=== PATIENT | female | born 1990 | race Caucasian/White ===

== ENCOUNTER 2017-04-23 10:30 | Emergency (ER) | payer OTHER ==
[2017-04-23 10:34] VITALS: BP 120/71; PULSE 86; TEMP 98; BMI 20.1
--- NOTE | 2017-04-23 11:13 | PDOC ---
History of Present Illness - General Chief Complaint: Vaginal Bleeding Stated Complaint: VAGINAL BLEEDING (5 WKS ) Time Seen by Provider: 04/23/17 11:09 History Source: Patient Exam Limitations: Language Barrier (Patient is Canadian speaking, national park ranger phone was used) - History of Present Illness Initial Comments: 04/23/17 12:14 A 26 y/o at 5w3d (by ROBBINJoanie, Sept 1) presents with c/o abd pain and vaginal bleeding. Patient states that she developed abd cramps and vaginal bleeding this morning. She soaked through 1 pad and says there were blood clots. She has not seen a healthcare provider for this current . Her previous was 5 years ago and resulted in a vaginal delivery 1 month early. She delivered in [place]. She denies any complications during her first . She also c/o a headache. Patient denies fever, chills, SOB, and dysuria. Timing/Duration: other (since this morning) Severity: moderate Associated Symptoms: reports: denies symptoms Past History - Past Medical History Allergies/Adverse Reactions: Allergies Allergy/AdvReac Type Severity Reaction Status Date / Time No Known Allergies Allergy Verified 04/23/17 10:32 Home Medications: Ambulatory Orders NK [No Known Home Medication] 04/23/17 Other medical history: none - Reproductive History LMP comment: Mar 16 2017 Is Patient Now?: Yes (#): 2 Para: 1 - Suicide/Smoking/Psychosocial Hx Smoking History: Never smoked Information on smoking cessation initiated: No Hx Alcohol Use: No Drug/Substance Use Hx: No Review of Systems - Review of Systems Is the patient limited Malaysian proficient: Yes Constitutional: No: Fever HEENTM: No: Blurred Vision, Recent change in vision Respiratory: No: Shortness of Breath Cardiac (ROS): No: Chest Pain ABD/GI: Yes: Abdominal cramping : No: Dysuria *Physical Exam - Vital Signs Last Vital Signs Temp Pulse Resp BP Pulse Ox 98.0 F 86 18 120/71 100 04/23/17 10:32 04/23/17 10:32 04/23/17 10:32 04/23/17 10:32 04/23/17 10:32 - Physical Exam General Appearance: Yes: Nourished, Appropriately Dressed Female Pelvic Exam: positive: normal external exam, cervical os closed, vaginal bleeding, other (bimanual exam shows midline tenderness) Gastrointestinal/Abdominal: positive: Tender, Soft ED Treatment Course - LABORATORY CBC & Chemistry Diagram: 04/23/17 13:00 04/23/17 13:00 *DC/Admit/Observation/Transfer Diagnosis at time of Disposition: Complete spontaneous - Discharge Dispostion Disposition: HOME Condition at time of disposition: Improved Admit: No - Referrals Referrals: Chloé Cheung MD [Staff Physician] - - Patient Instructions Printed Discharge Instructions: DI for Miscarriage Additional Instructions: NATHALIE- MARCELLRY THAT YOU HAVE TO GO THROUGH THIS. FOLLOW UP WITH DR. CHEUNG. RETURN TO US IF WORSE OR ANY PROBLEMS. BEST- DR. PAM PULIDO
[2017-04-23 13:22] LABS: BASOPHIL 1.4 % (0-2.0); EOSINOPHIL 7.6 % (0-4.5); MCH 32.5 pg (25.7-33.7); MCHC 33.6 g/dl (32.0-36.0); MEAN CELL VOLUME 96.5 fl (80-96); MEAN PLT VOLUME 10.1 fl (7.5-11.1); PLATELET COUNT 194 K/MM3 (134-434); WHITE BLOOD COUNT 6.7 K/mm3 (4.0-10.0)
[2017-04-23 13:27] LABS: ALBUMIN 4.1 g/dl (3.4-5.0); ANION GAP 7 (8-16); CALCIUM 8.9 mg/dL (8.5-10.1); CO2 27 mmol/L (21-32); GLUCOSE,RANDOM 85 mg/dL (74-106)
[2017-04-23 13:31] LABS: BILIRUBIN,TOTAL 0.5 mg/dL (0.2-1.0); CREATININE 0.5 mg/dL (0.55-1.02); SGOT/AST 22 U/L (15-37); SGPT/ALT 37 U/L (12-78); TOT PROT 7.7 g/dl (6.4-8.2)
[2017-04-23 13:33] LABS: INR 1.04 (0.82-1.09); PROTHROMBIN TIME (PATIENT) 11.4 SEC (9.98-11.88)
[2017-04-23 13:34] LABS: ALK PHOS 117 U/L (45-117)
== END 2017-04-23 15:54 | disposition home or self-care (01) ==
LOC: JER 10:30
DX: O26.891 Other specified pregnancy related conditions, first trimester (principal); O03.9 Complete or unspecified spontaneous abortion without complication
CPT/HCPCS: 36415; 76817-TC; 80053; 84702; 85025; 85610; 86850; 86900; 86901; 99283-25

== ENCOUNTER 2017-12-04 16:00 | Emergency (ER) | payer OTHER ==
--- NOTE | 2017-12-04 16:04 | PDOC ---
Rapid Medical Evaluation Time Seen by Provider: 12/04/17 16:02 Medical Evaluation: Allergies Allergy/AdvReac Type Severity Reaction Status Date / Time No Known Allergies Allergy Verified 04/23/17 10:32 12/04/17 16:02 Bit by mouse to R third finger yesterday. Pt. 6 months . No abdominal pain, vaginal bleeding. Exam: Ambulatory, no respiratory distress. Bite kosta to R third base of finger. Full ROM Orders: Nothing Pt. to proceed to ED for further evaluation.
[2017-12-04 16:06] VITALS: BMI 22.8
--- NOTE | 2017-12-04 17:19 | PDOC ---
History of Present Illness - General Chief Complaint: Bite Stated Complaint: MOUSE BITE Time Seen by Provider: 12/04/17 16:02 History Source: Patient Exam Limitations: No Limitations - History of Present Illness Initial Comments: 12/04/17 17:13 Best Contact: PCP:Dr. Alva Jackson Pmhx:N/A Pshx:N/A Allergies:NKDA FH:N/A Social Hx: Cigarettes/ 0 Alcohol/ 0 Drugs/0 27-year-old female presents to the emergency department complaining of a superficial abrasion to the dorsal aspect of her proximal right third digit after being bit by a mouse that was in her home. Patient states the incident occurred approximately 8 hours ago. She denies fever, chills, nausea/vomiting, extremity numbness or tingling sensation. Patient denies any pain or discomfort. Immunizations are up-to-date. Tetanus is within 5 years. Past History - Past Medical History Allergies/Adverse Reactions: Allergies Allergy/AdvReac Type Severity Reaction Status Date / Time No Known Allergies Allergy Verified 04/23/17 10:32 Home Medications: Ambulatory Orders Amoxicillin/Potassium Clav [Augmentin 875-125 Tablet] 1 each PO BID #10 tablet 12/04/17 COPD: No - Reproductive History (#): 2 Para: 1 - Suicide/Smoking/Psychosocial Hx Smoking History: Never smoked Have you smoked in the past 12 months: No Information on smoking cessation initiated: No Hx Alcohol Use: No Drug/Substance Use Hx: No Substance Use Type: None Review of Systems - Review of Systems Able to Perform ROS?: Yes Comments:: 12/04/17 17:16 CONSTITUTIONAL: Absent: fever, chills, diaphoresis, generalized weakness, malaise, loss of appetite MUSCULOSKELETAL: Absent: myalgia, arthralgia, joint swelling SKIN: Absent: rash, itching, pallor Right 3rd prox dorsum phalanx +abrasion neg pain on palp Is the patient limited Vincentian proficient: No *Physical Exam - Vital Signs Last Vital Signs Temp Pulse Resp BP Pulse Ox 98.0 F 77 18 106/65 100 12/04/17 16:04 12/04/17 16:04 12/04/17 16:04 12/04/17 16:04 12/04/17 16:04 - Physical Exam Comments: 12/04/17 17:16 GENERAL: Well developed, well nourished. Awake and alert. No acute distress. HEENT: Normocephalic, atraumatic. PERRLA, EOMI. No conjunctival pallor. Sclera are non- icteric. Moist mucous membranes. Oropharynx is clear. NECK: Supple. Full ROM. No JVD. Carotid pulses 2+ and symmetric, without bruits. No thyromegaly. No lymphadenopathy. CARDIOVASCULAR: Regular rate and rhythm. No murmurs, rubs, or gallops. Distal pulses are 2+ and symmetric. PULMONARY: No evidence of respiratory distress. Lungs clear to auscultation bilaterally. No wheezing, rales or rhonchi. ABDOMINAL: Soft. Non-tender. Non-distended. No rebound or guarding. No organomegaly. Normoactive bowel sounds. MUSCULOSKELETAL Normal range of motion at all joints. No bony deformities or tenderness. No CVA tenderness. EXTREMITIES: No cyanosis. No clubbing. No edema. No calf tenderness. SKIN: Warm and dry. Normal capillary refill. No rashes. No jaundice. =DORSAL PROX PHALANX TO 3RD RIGHT DIGIT SUPERFICIAL ABRASION f.r.o.m. Neg swelling Moderate Sedation - Procedure Monitoring Vital Signs: Vital Signs Temp Pulse Resp BP Pulse Ox 98.0 F 77 18 106/65 100 12/04/17 16:04 12/04/17 16:04 12/04/17 16:04 12/04/17 16:04 12/04/17 16:04 Progress Note - Progress Note Progress Note: This is a 27-year-old female patient who presents to the ER complaining of a superficial abrasion to the dorsal aspect of her third proximal phalanx after a mouth bit her finger at home. Under the CDC website, rabies are not transmitted through mouth bite. Patient will be placed on prophylactic Augmentin which is safe for her . Upon d/c, pt was sent to L&D for monitoring *DC/Admit/Observation/Transfer Diagnosis at time of Disposition: Bitten by mouse, initial encounter - Discharge Dispostion Condition at time of disposition: Stable Decision to Admit order: No - Prescriptions Prescriptions: Amoxicillin/Potassium Clav [Augmentin 875-125 Tablet] 1 each PO BID #10 tablet - Referrals Referrals: Bre Mendez MD [Staff Physician] - Светлана Murray MD [Staff Physician] - (Maintain appontment as scheduled. Drink plenty of fluids (8-10 glasses per day). Take all medication as prescribed by you doctor. Return to Labor and Delivery if you have any bledding, your water breaks, having contractions 5 min apart for one hour, or if you do not feel the baby moving. Patient verbalizes understanding. Ok to d/ c home. Stable and undelivered) - Patient Instructions Printed Discharge Instructions: DI for Animal Bites Additional Instructions: Wash your finger with soap and water Augmentin 875 mg as prescribed Follow up with the Infectious Disease physician listed on your discharge this week Return to the ER for signs of infection: redness/red streaks, drainage, swelling , fever - Post Discharge Activity
[2017-12-04] MEDS ORDERED: DIPHTH,PERTUSS(ACELL),TET 0.5 ML DISP.SYRIN IM ONE ×2 (18:00→19:15)
[2017-12-04 18:42] VITALS: PULSE 76; TEMP 983
[2017-12-04 18:49] VITALS: BP 103/60
== END 2017-12-04 18:30 | disposition home or self-care (01) ==
LOC: JERFT 16:00
PROC: 3E0234Z Introduction of Serum, Toxoid and Vaccine into Muscle, Percutaneous Approach (ICD-10-PCS; principal; 2017-12-04)
DX: O99.89 Other specified diseases and conditions complicating pregnancy, childbirth and the puerperium (principal); S60.472A Other superficial bite of right middle finger, initial encounter; W53.01XA Bitten by mouse, initial encounter; Y93.89 Activity, other specified; Y92.038 Other place in apartment as the place of occurrence of the external cause; Z3A.24 24 weeks gestation of pregnancy
CPT/HCPCS: 90471; 99281-25

== ENCOUNTER 2018-03-08 22:35 | Emergency (ER) | payer OTHER ==
--- NOTE | 2018-03-08 22:55 | PDOC ---
Attending Attestation - HPI HPI: 03/08/18 23:37 The patient is a 27 year old female, with no significant past medical history, who presents to the emergency department with, fever, diaphoresis, and right flank pain. As per patient, she is 2 days , discharged today. The gave at full-term, vaginal delivery. She is currently . She denies recent headache or dizziness. She denies recent nausea, vomit, diarrhea or constipation. She denies recent dysuria, frequency, urgency or hematuria. She denies recent chest pain or shortness of breath. Allergies: NKA Social history: Nonsmoker. Denies EtOH use and recreational drug use. TIN POURER: Dr. Bailey - Physicial Exam PE: 03/08/18 23:37 +GENERAL: Febrile 102.3 degrees F. Warm to the touch and diaphoretic. Awake, alert, and fully oriented, in no acute distress HEAD: No signs of trauma NECK: Normal ROM, supple, no lymphadenopathy, JVD, or masses LUNGS: Breath sounds equal, clear to auscultation bilaterally. No wheezes, and no crackles. No egophony. +HEART: Tachycardic. Regular rhythm, normal S1 and S2, no murmurs, rubs or gallops +BACK: Right CVA tenderness. ABDOMEN: Soft, nontender, normoactive bowel sounds. No guarding, no rebound. No masses +EPISIOTOMY: Surgical scar healing well. No cellulitis, pus, or tenderness. EXTREMITIES: Normal range of motion, no edema. No clubbing or cyanosis. No cords, erythema, or tenderness. No calf tenderness or swelling. NEUROLOGICAL: Cranial nerves II through XII grossly intact. Normal speech. SKIN: Warm, Dry, normal turgor, no rashes or lesions noted. <Mirian Lee - Last Filed: 03/09/18 00:44> - Resident Resident Name: Gibran Montero - ED Attending Attestation I have performed the following: I have examined & evaluated the patient, The case was reviewed & discussed with the resident, I agree w/resident's findings & plan - Medical Decision Making 03/08/18 23:27 Pt has a rectal temp of 102.3F. SHe is sweating and hot to the touch. Pt is her 2 day old baby, but she has no rashes on her breast and no seemingly blocked ducts. Pt has no cellulitis or infection of her episiotomy site. SHe has no dysuria, but she is having right flank pain. Pt has no abd pain. She has no chest pain or cough and she has no ill contacts at home. No N/V/D. Pt is tearful, but she has no discomfort. We are awaiting Labs and UA. Urine culture and blood culture will be sent. Pt will likely be admitted to [facility] CLAIM REPRESENTATIVE service. 03/09/18 01:12 Pt has nitrite positive urine. Pt has right flank pain. We will image to make sure that there is no obstruction/complicated UTI/pyelo issue. Pt has an elevated lactic acid of 2.4 She is receiving hydration and IVF. SHe was also given a breast pump for her engorged breasts. 03/09/18 03:57 2nd lactic acid is normal. 03/09/18 03:57 CT demonstrates no stranding around the kidney and no stone. Pt will be discharged home with augmentin, as per TIN POURER's recommendation. Pt will be treated with broad spectrum abx, as she recently gave requiring instrumentation in her vag canal/uterus. Pt will follow with her TIN POURER, or return immediately for worsening symptoms. 03/09/18 04:22 Patient Name: NATHALIE CASTRO THIS IS A PRELIMINARY REPORT FROM [facility] DATE OF SERVICE: 2018-03-09 02:41:05 IMAGES: 470 EXAM: CT abdomen and pelvis without contrast HISTORY: Rule out stone. Right flank pain and fever. COMPARISON: None. FINDINGS: Lung bases are clear other than mild dependent atelectasis. The visualized cardiac chambers are normal size and configuration. Mild right hydronephrosis with perinephric inflammation may be secondary to compression of ureter by the large recently gravid uterus, although the ascending UTI with pyelonephritis is not excluded. There are no stones. Normal unenhanced liver, gallbladder, pancreas, spleen, adrenal glands and kidneys. The stomach and abdominal small and large bowel are normal. There is no aortic aneurysm. There is no significant retroperitoneal lymphadenopathy. The pelvic small and large bowel are normal. The appendix is normal. The uterus enlarged with recent gravid state. There is heterogeneous high density in the regions of blood as well as air which may be transferred to masses. Urinary bladder is unremarkable. There is no pelvic free fluid. No discrete pelvic lymphadenopathy is identified. IMPRESSION: Presumed hemorrhage in the endometrium with possible endometritis. Mild right hydronephrosis and perinephric edema could be due to ureteral compression by the enlarged uterus and/or ascending UTI including pyelonephritis. A recently passed stone is not completely excluded. Individualized dose optimization techniques were used for this CT. THIS DOCUMENT HAS BEEN ELECTRONICALLY SIGNED 03/09/18 20:04 TIN POURER won't admit the patient; stable for d/c on a broad spectrum abx. <Harmony Cordova - Last Filed: 03/09/18 20:04> Attestations - Attestations 03/08/18 23:40 Documentation prepared by Mirian Lee, acting as medical secretary teacher for Harmony Cordova MD. <Mirian Lee - Last Filed: 03/09/18 00:44>
[2018-03-08 23:02] VITALS: BMI 26.2
[2018-03-08] MEDS ORDERED: ACETAMINOPHEN 325 MG TABLET (FP) PO ONE (23:05)
[2018-03-08] MEDS ORDERED: SODIUM CHLORIDE 0.9% 500 ML INFUS.BAG IV ONE (23:22)
[2018-03-08] MEDS ORDERED: ACETAMINOPHEN 325 MG TABLET (FP) ONE (23:32)
--- NOTE | 2018-03-09 00:07 | PDOC ---
History of Present Illness - General Stated Complaint: FEVER Time Seen by Provider: 03/08/18 22:49 History Source: Patient, Spouse Exam Limitations: Language Barrier (Pt is Panamanian speaking only. Interpretation provided by bilingual member of staff.) - History of Present Illness Initial Comments: 27 y/o female presenting to [facility] ER via private auto complaining of fever and right flank pain. Pt is a two days post- from vaginal delivery complicated by second degree laceration. and periods unremarkable. Pt was discharged from [facility] today. She reports the right sided flank pain started shortly after delivery and has been unchanged. Unable to determine hematuria as she is still expression lochia. Denies burning or dysuria. Began experiencing chills and subject fever at home this evening around 10pm. Denies shortness of breath, chest pain, or syncope. Past History - Past Medical History Allergies/Adverse Reactions: Allergies Allergy/AdvReac Type Severity Reaction Status Date / Time No Known Allergies Allergy Verified 03/04/18 07:24 Home Medications: Ambulatory Orders Vitamins (r) - 1 tab PO DAILY 01/20/18 Ibuprofen [Ibu] 800 mg PO TID PRN 10 Days #40 tablet 03/04/18 Amoxicillin/Potassium Clav [Augmentin 875-125 Tablet] 1 each PO BID #14 tablet 03/09/18 Asthma: No Cancer: No Cardiac Disorders: No COPD: No Diabetes: No HTN: No Seizures: No Thyroid Disease: No - Reproductive History (#): 2 Para: 1 - Suicide/Smoking/Psychosocial Hx Smoking History: Never smoked Have you smoked in the past 12 months: No Information on smoking cessation initiated: No Hx Alcohol Use: No Drug/Substance Use Hx: No Substance Use Type: None Hx Substance Use Treatment: No Review of Systems - Review of Systems Constitutional: Yes: Chills, Diaphoresis, Fever, Malaise HEENTM: No: Recent change in vision, Difficulty Swallowing Respiratory: No: Shortness of Breath Cardiac (ROS): Yes: Palpitations. No: Chest Pain ABD/GI: No: Constipated, Diarrhea, Nausea, Vomiting, Abdominal cramping : Yes: Discharge (Lochi, decreasing since ), Flank Pain. No: Burning, Dysuria Musculoskeletal: No: Muscle Pain Neurological: No: Headache Hematologic/Lymphatic: No: Easy Bleeding, Easy Bruising *Physical Exam - Vital Signs Last Vital Signs Temp Pulse Resp BP Pulse Ox 102.3 F H 125 H 22 127/77 98 03/08/18 23:24 03/08/18 22:40 03/08/18 22:40 03/08/18 22:40 03/08/18 22:40 - Physical Exam Comments: Constitutional: Well-developed, well-nourished female in no acute life threat but some discomfort.Found semi-fowlers in hospital bed. Alert and oriented x4. Answered all questions appropriately and completely. Speech was non-labored, non -pressured. Panamanian speaking only. HEENT: Normocephalic. No obvious external signs of trauma. Hearing grossly normal. No nasal discharge. Neck is supple, trachea is midline. Cardiovascular: tachycardic rate and regular rhythm. No murmur, rubs, clicks, or gallops. Peripheral pulses: Radial pulses full. Respiratory: Equal chest rise and fall. Clear to auscultation bilaterally. No stridor, no wheezing, no rhonchi. No tachypnea. : R CVA tenderness. Pad taken down, locia noted. No gross bleeding. Episiotomy wound intact without purulent discharge. Scribe chaperoned exam. FEMALE BREASTS: Engorged and tender bilaterally. Milk expressed from left breast. No sanguinous discharge. No erythema or skin break down. Skin: Hot and diaphoretic. No bruising, rashes, or other lesions. Gastrointestinal: abdomen is soft, non-tender, non-distended. No hepatosplenemegaly. No pulsatile masses. No overlying skin lesions or obvious signs of trauma. Neuro: Alert and oriented. Moving all four extremities spontaneously. Psych: Affect: appropriate. Mood: normal. Medical Decision Making - Medical Decision Making 27 y/o two days post- from vaginal delivery complicated by second degree laceration complaining of fever (since 22:00 today) and R flank pain (x2 days). Febrile rectally. Tachycardic without hypotension. Physical exam revealed R CVA tenderness; well appearing episiotomy wound; bilaterally engorged breasts without sanguineous discharge, erythema, or skin breakdown. Concern for pyelonephritis verus retained produces of conception versus endometritis. Low suspicion for mastitis. Low suspicion for PE as pt is not tachypnic or complaining of SOB. Will obtain CBC, CMP, lactate, blood cultures, UA (catherized), and urine analysis. Ordered NS IVFB and Tylenol for symptom relief. 03/09/18 00:28 Pt signed out to Dr. Heller. *DC/Admit/Observation/Transfer Diagnosis at time of Disposition: Fever Qualifiers: Fever type: unspecified Qualified Code(s): R50.9 - Fever, unspecified - Discharge Dispostion Condition at time of disposition: Fair - Prescriptions Prescriptions: Amoxicillin/Potassium Clav [Augmentin 875-125 Tablet] 1 each PO BID #14 tablet - Referrals Referrals: Clifton Villalba MD [Primary Care Provider] - - Patient Instructions - Post Discharge Activity
[2018-03-09] MEDS ORDERED: AMPICILLIN NA/SULBACTAM NA 1.5 GM in SODIUM CHLORIDE 100 ML IVPB ONE (00:25)
--- NOTE | 2018-03-09 00:25 | PDOC ---
*Physical Exam - Vital Signs Last Vital Signs Temp Pulse Resp BP Pulse Ox 102.3 F H 125 H 22 127/77 98 03/08/18 23:24 03/08/18 22:40 03/08/18 22:40 03/08/18 22:40 03/08/18 22:40 ED Treatment Course - LABORATORY CBC & Chemistry Diagram: 03/09/18 00:13 03/09/18 00:13 - Medications Given in the ED: ED Medications Discontinued Medications Generic Name Dose Route Start Last Admin Trade Name Joyce PRN Reason Stop Dose Admin Acetaminophen 650 mg 03/08/18 23:05 03/08/18 23:59 Tylenol - PO 03/08/18 23:06 650 mg ONCE ONE Administration Sodium Chloride 1,000 ml 03/08/18 23:22 03/08/18 23:59 Normal Saline - IV 03/08/18 23:23 1,000 ml ONCE ONE Administration Medical Decision Making - Medical Decision Making 03/09/18 00:[address] Montero. Patient is 27F here today complaining of right flank pain. Patient gave via NVD two days ago. Septic workup initiated. Pending lab work and admission. 03/09/18 02:44 Laboratory Tests 03/09/18 03/09/18 03/09/18 00:13 00:13 00:13 WBC 6.7 Hgb 10.5 L Plt Count 225 D Neutrophils % 93.1 H Band Neutrophils % 14.4 Lactic Acid 2.4 H* Urine Nitrite Positive Ur Leukocyte Esterase 3+ H Urine WBC (Auto) 429 Urine RBC (Auto) 227 CBC shows bandemia. UA positive. CT ordered for ?stone. Lactic acid+. Given unasyn for possible endometritis per Dr Basurto 03/09/18 04:[address] scan shows no stone, stranding around kidney concerning for pyelonephritis. Also shows possible endometritis. Will cover with augmentin per Dr Basurto. Patient wishes to go home to take care of new born.Will instruct patient to follow up with OBGYN. Strict return precautions given. *DC/Admit/Observation/Transfer Diagnosis at time of Disposition: Pyelonephritis - Discharge Dispostion Disposition: HOME Condition at time of disposition: Good Decision to Admit order: No - Prescriptions Prescriptions: Amoxicillin/Potassium Clav [Augmentin 875-125 Tablet] 1 each PO BID #14 tablet - Referrals Referrals: Clifton Villalba MD [Primary Care Provider] - - Patient Instructions Printed Discharge Instructions: DI for Kidney Infection Additional Instructions: Llame a [place] mdico OBGYN el lunes para programar deonte maryanne. Regrese de inmediato al servicio de urgencias si no puede [place] medicamento o empeorar. - Post Discharge Activity
[2018-03-09 00:31] LABS: BASO % 0.1 % (0-2.0); HEMATOCRIT 31.1 % (32.4-45.2); HEMOGLOBIN 10.5 GM/dL (10.7-15.3); LYMPH % 4.7 % (8-40); MCH 29.8 pg (25.7-33.7); MCHC 33.9 g/dl (32.0-36.0); MEAN CELL VOLUME 87.7 fl (80-96); MONO % 1.1 % (3.8-10.2); NEUT % 93.1 % (42.8-82.8); PLATELET COUNT 225 K/MM3 (134-434); RBC 3.54 M/mm3 (3.60-5.2); RDW 18.3 % (11.6-15.6); URINE APPEARANCE CLOUDY; URINE BILIRUBIN NEGATIVE (<2.0 mg/dL); URINE COLOR YELLOW; URINE GLUCOSE (UA) NEGATIVE (NEGATIVE); URINE KETONE NEGATIVE (NEGATIVE); URINE NITRITE POSITIVE (NEGATIVE); URINE UROBILINOGEN NEGATIVE mg/dL (0.2-1.0); WHITE BLOOD COUNT 6.7 K/mm3 (4.0-10.0)
[2018-03-09 00:38] LABS: URINE LEUK ESTERASE 3+ (NEGATIVE); URINE PROTEIN 2+ (NEGATIVE)
[2018-03-09 00:39] LABS: EPI CELLS RARE /HPF (FEW); URINE BACTERIA RARE /hpf (NONE SEEN); URINE HYALINE CAST 5 /lpf
[2018-03-09] MEDS ORDERED: CEFTRIAXONE 1,000 MG in DEXTROSE 5%-WATER - 50 ML IVPB ONE (00:40)
[2018-03-09 00:55] LABS: ALBUMIN 2.4 g/dl (3.4-5.0); ANION GAP 10 MMOL/L (8-16); BILIRUBIN,TOTAL 0.2 mg/dL (0.2-1.0); BLOOD UREA NITROGEN 13 mg/dL (7-18); CHLORIDE 111 mmol/L (98-107); CO2 22 mmol/L (21-32); CREATININE 0.6 mg/dL (0.55-1.02); GLUCOSE,RANDOM 94 mg/dL (74-106); POTASSIUM 3.4 mmol/L (3.5-5.1); SGOT/AST 26 U/L (15-37); SGPT/ALT 23 U/L (12-78); SODIUM 143 mmol/L (136-145); TOT PROT 6.1 g/dl (6.4-8.2)
[2018-03-09 00:56] LABS: ALK PHOS 269 U/L (45-117)
[2018-03-09 04:54] VITALS: BP 95/59; PULSE 98; TEMP 98.9
== END 2018-03-09 04:53 | disposition home or self-care (01) ==
LOC: JER 22:35
DX: O86.89 Other specified puerperal infections (principal); O86.21 Infection of kidney following delivery
CPT/HCPCS: 36415; 74176; 80053; 81003; 81015; 83605; 85025; 87040; 87070; 87086; 87186; 87205; 96365; 99282-25

== ENCOUNTER 2019-08-21 11:13 | Emergency (ER) | payer OTHER ==
[2019-08-21 11:30] VITALS: TEMP 98.1; BMI 33.7
[2019-08-21 12:15] LABS: URINE APPEARANCE CLEAR; URINE BILIRUBIN NEGATIVE (NEGATIVE); URINE COLOR YELLOW; URINE GLUCOSE (UA) NEGATIVE (NEGATIVE); URINE KETONE NEGATIVE (NEGATIVE); URINE LEUK ESTERASE NEGATIVE (NEGATIVE); URINE NITRITE NEGATIVE (NEGATIVE); URINE PROTEIN NEGATIVE (NEGATIVE)
--- NOTE | 2019-08-21 12:27 | PDOC ---
History of Present Illness - General History Source: Patient Exam Limitations: No Limitations - History of Present Illness Initial Comments: 08/21/19 15:49 28-year-old female denies past medical history, G3, P2 approximately 16 weeks gestation, LMP April 22, 2019 presents to ED complaining of 4 days of right lower quadrant pain associated with nausea and vomiting. Morning nausea and vomiting has been intermittent since this . Denies fever, chills, diarrhea, chest pain, shortness of breath, recent travel, recent sick contacts, urinary symptoms, vaginal bleeding or vaginal discharge. Patient does not have an OB appointment and is not taking vitamins given she does not have health insurance until September 2019. Patient has not taken any medications for her symptoms. ROS: GENERAL/CONSTITUTIONAL: No fever, chills, weakness, dizziness HEAD, EYES, EARS, NOSE AND THROAT: No changes in vision, No ear pain or discharge, No sore throat CARDIOVASCULAR: No chest pain RESPIRATORY: No shortness of breath or cough GASTROINTESTINAL: Abdominal pain, nausea, vomiting, denies diarrhea or constipation GENITOURINARY: No dysuria MUSCULOSKELETAL: No neck or back pain SKIN: No rash NEUROLOGIC: No headache, vertigo, loss of consciousness, or loss of sensation PE: GENERAL: well-appearing, NAD HEAD: NCAT EYES: Pupils equal, round and reactive to light, sclera anicteric, conjunctiva clear ENT: pharynx: no erythema, no exudate, uvula midline NECK: supple CHEST: nontender RESP: clear, no w/r/r CARDIO: rrr, no m/g/r ABD: +BS, soft, gravid, right lower quadrant tenderness to palpation, no guarding, no rebound BACK: no midline spinal ttp, no CVAT EXTREMITIES: Normal range of motion, no edema NEUROLOGICAL: Normal speech, normal gait SKIN: Warm, Dry 08/21/19 15:53 Is this a multiple visit Asthma Patient?: No <Isha Fraire - Last Filed: 08/21/19 16:03> <Bebeto Martinez - Last Filed: 08/21/19 18:35> - General Chief Complaint: Pain, Acute Stated Complaint: ABD PAIN Time Seen by Provider: 08/21/19 11:38 Past History - Past Medical History Asthma: No Cancer: No Cardiac Disorders: No COPD: No Diabetes: No HTN: No Seizures: No Thyroid Disease: No - Reproductive History (#): 2 Para: 1 - Immunization History Immunization Up to Date: No - Psycho Social/Smoking Cessation Hx Smoking History: Never smoked Have you smoked in the past 12 months: No Information on smoking cessation initiated: No Hx Alcohol Use: No Drug/Substance Use Hx: No Substance Use Type: None Hx Substance Use Treatment: No <Isha Fraire - Last Filed: 08/21/19 16:03> <Bebeto Martinez - Last Filed: 08/21/19 18:35> - Past Medical History Allergies/Adverse Reactions: Allergies Allergy/AdvReac Type Severity Reaction Status Date / Time No Known Allergies Allergy Verified 03/09/18 04:55 Home Medications: Ambulatory Orders Vitamins (Sjr) - 1 tab PO DAILY 01/20/18 Ibuprofen [Ibu] 800 mg PO TID PRN 10 Days #40 tablet 03/04/18 Amoxicillin/Potassium Clav [Augmentin 875-125 Tablet] 1 each PO BID #14 tablet 03/09/18 *Physical Exam - Vital Signs Last Vital Signs Temp Pulse Resp BP Pulse Ox 98.1 F 78 18 107/60 98 08/21/19 11:27 08/21/19 11:27 08/21/19 11:27 08/21/19 11:27 08/21/19 11:27 <Isha Fraire - Last Filed: 08/21/19 16:03> - Vital Signs Last Vital Signs Temp Pulse Resp BP Pulse Ox 98.1 F 79 18 118/74 99 08/21/19 11:27 08/21/19 17:32 08/21/19 17:32 08/21/19 17:32 08/21/19 17:32 <Bebeto Martinez - Last Filed: 08/21/19 18:35> ED Treatment Course - LABORATORY CBC & Chemistry Diagram: 08/21/19 12:25 08/21/19 12:25 - ADDITIONAL ORDERS Additional order review: Laboratory Results 08/21/19 11:55 Urine HCG, Qual Positive <Isha Fraire - Last Filed: 08/21/19 16:03> - LABORATORY CBC & Chemistry Diagram: 08/21/19 12:25 08/21/19 12:25 - ADDITIONAL ORDERS Additional order review: Laboratory Results 08/21/19 08/21/19 08/21/19 12:25 12:25 11:55 PT with INR 10.60 INR 0.90 PTT (Actin FS) 26.0 Sodium 136 Potassium 4.5 Chloride 106 Carbon Dioxide 24 Anion Gap 7 L BUN 5.5 L Creatinine 0.4 L Est GFR (CKD-EPI)AfAm 165.44 Est GFR (CKD-EPI)NonAf 142.74 Random Glucose 96 Calcium 8.7 Magnesium 2.3 Total Bilirubin 0.4 AST 55 H ALT 22 Alkaline Phosphatase 89 Total Protein 7.0 Albumin 3.3 L Beta HCG, Quant 85406.3 Urine Color Yellow Urine Appearance Clear Urine pH 5.0 Ur Specific [place] 1.022 Urine Protein Negative Urine Glucose (UA) Negative Urine Ketones Negative Urine Blood Negative Urine Nitrite Negative Urine Bilirubin Negative Urine Urobilinogen 1.0 Ur Leukocyte Esterase Negative Urine HCG, Qual 08/21/19 11:55 PT with INR INR PTT (Actin FS) Sodium Potassium Chloride Carbon Dioxide Anion Gap BUN Creatinine Est GFR (CKD-EPI)AfAm Est GFR (CKD-EPI)NonAf Random Glucose Calcium Magnesium Total Bilirubin AST ALT Alkaline Phosphatase Total Protein Albumin Beta HCG, Quant Urine Color Urine Appearance Urine pH Ur Specific [place] Urine Protein Urine Glucose (UA) Urine Ketones Urine Blood Urine Nitrite Urine Bilirubin Urine Urobilinogen Ur Leukocyte Esterase Urine HCG, Qual Positive 08/21/19 12:25 RBC 4.07 MCV 93.8 MCHC 35.5 RDW 13.9 D MPV 9.1 Neutrophils % 76.9 Lymphocytes % 17.7 D Monocytes % 3.8 D Eosinophils % 0.8 Basophils % 0.8 D - Medications Given in the ED: ED Medications Discontinued Medications Generic Name Dose Route Start Last Admin Trade Name Joyce PRN Reason Stop Dose Admin Acetaminophen 1,000 mg 08/21/19 16:00 08/21/19 16:22 Tylenol - PO 08/21/19 16:01 1,000 mg ONCE ONE Administration <Bebeto Martinez - Last Filed: 08/21/19 18:35> Medical Decision Making - Medical Decision Making 08/21/19 15:53 28-year-old female G3, P2, LMP April 22, 2019 presents complaining of right lower quadrant constant pain x4 days with associated nausea vomiting. However nausea vomiting is intermittent in the morning likely due to her . Denies fever, chills, diarrhea, chest pain, shortness of breath, back pain, urinary symptoms, vaginal bleeding or vaginal discharge. Patient has not followed up with OB and is not taking care vitamins given her lack of insurance until September 2019. Reviewed labs and UA -unremarkable Vaginal ultrasound consistent with 16-week 3-day gestation positive heart rate Abdominal ultrasound is unable to visualize the appendix Patient had abdominal/pelvic MRI to rule out appendectomy, consent signed and questionnaire completed Awaiting results ordered acetamniphen 975mg one dose sign out to [facility] <Isha Fraire - Last Filed: 08/21/19 16:03> - Medical Decision Making 08/21/19 18:34 28 years old 16 weeks with right lower quadrant abdominal pain On physical examination right lower quadrant tenderness to palpation positive obturator sign Plan is ultrasound transvaginal to rule out ectopic given no previous ultrasound ultrasound to evaluate for appendicitis. If no evidence of appendicitis patient will require MRI Reevaluation MRI negative Patient to be discharged home with TRAINING ANALYST follow-up Findings, need for follow-up and strict return instructions discussed with patient. <Bebeto Martinez - Last Filed: 08/21/19 18:35> Discharge - Discharge Information Problems reviewed: Yes <Isha Fraire - Last Filed: 08/21/19 16:03> <Bebeto Martinez - Last Filed: 08/21/19 18:35> - Discharge Information Clinical Impression/Diagnosis: Right lower quadrant abdominal pain during Condition: Stable Disposition: HOME - Follow up/Referral Referrals: Loren Arias [Primary Care Provider] - - Patient Discharge Instructions Additional Instructions: Your MRI today was normal. It is very important that you follow-up with TRAINING ANALYST for continued evaluation of your . It is very important that you take vitamins to benefit the overall health of your growing baby. You do not need a prescription for these as they are available [id number]. The usually cost less than $20. You been given a referral for an TRAINING ANALYST. Call to schedule an appointment for reevaluation. Return to the emergency department for any vaginal bleeding, severe pain not relieved by medications or for any other concerns. Thank you very much for choosing us to provide your emergent healthcare needs. Tu resonancia magntica de hoy fue normal. Es muy importante que realice un seguimiento con OB / IT TECHNICIAN para deonte evaluacin continua de salamanca embarazo. Es muy importante que tome vitaminas prenatales para beneficiar la wayne general de salamanca beb en crecimiento. No necesita deonte receta para estos, ya que estn disponibles sin receta. Por lo general, cuestan menos de $ 20. Le dieron deonte referencia para un obstetra / gineclogo. Llame para programar deonte maryanne para la reevaluacin. Regrese al departamento de emergencias por cualquier sangrado vaginal, dolor intenso no aliviado por medicamentos o por cualquier otra inquietud. Muchas jamie por elegirnos para satisfacer kami necesidades de atencin mdica emergentes. - Post Discharge Activity
[2019-08-21 12:36] LABS: BASO % 0.8 % (0-2.0); EOS % 0.8 % (0-4.5); HEMATOCRIT 38.2 % (32.4-45.2); HEMOGLOBIN 13.5 GM/dL (10.7-15.3); LYMPH % 17.7 % (8-40); MCH 33.3 pg (25.7-33.7); MCHC 35.5 g/dl (32.0-36.0); MEAN CELL VOLUME 93.8 fl (80-96); MEAN PLT VOLUME 9.1 fl (7.5-11.1); MONO % 3.8 % (3.8-10.2); NEUT % 76.9 % (42.8-82.8); PLATELET COUNT 219 K/MM3 (134-434); RBC 4.07 M/mm3 (3.60-5.2); RDW 13.9 % (11.6-15.6); WHITE BLOOD COUNT 7.6 K/mm3 (4.0-10.0)
[2019-08-21 12:57] LABS: INR 0.9 (0.83-1.09); PROTHROMBIN TIME (PATIENT) 10.6 SEC (9.7-13.0)
[2019-08-21 13:18] LABS: ALBUMIN 3.3 g/dl (3.4-5.0); BILIRUBIN,TOTAL 0.4 mg/dL (0.2-1); BLOOD UREA NITROGEN 5.5 mg/dL (7-18); CALCIUM 8.7 mg/dL (8.5-10.1); CREATININE 0.4 mg/dL (0.55-1.3); MAGNESIUM 2.3 mg/dL (1.8-2.4); POTASSIUM 4.5 mmol/L (3.5-5.1)
[2019-08-21] MEDS ORDERED: ACETAMINOPHEN 500 MG TABLET (FP) PO ONE (16:00)
[2019-08-21] MEDS ORDERED: ACETAMINOPHEN 500 MG TABLET (FP) ONE (16:24)
--- NOTE | 2019-08-21 17:20 | PDOC ---
*Physical Exam - Vital Signs Last Vital Signs Temp Pulse Resp BP Pulse Ox 98.1 F 78 18 107/60 98 08/21/19 11:27 08/21/19 11:27 08/21/19 11:27 08/21/19 11:27 08/21/19 11:27 - Physical Exam General Appearance: Yes: Appropriately Dressed. No: Apparent Distress HEENT: positive: Normal ENT Inspection Respiratory/Chest: positive: Lungs Clear, Normal Breath Sounds. negative: Respiratory Distress, Accessory Muscle Use Cardiovascular: positive: Regular Rhythm, Regular Rate. negative: Murmur Gastrointestinal/Abdominal: positive: Normal Bowel Sounds, Tender (RLQ), Soft ED Treatment Course - LABORATORY CBC & Chemistry Diagram: 08/21/19 12:25 08/21/19 12:25 - ADDITIONAL ORDERS Additional order review: Laboratory Results 08/21/19 08/21/19 08/21/19 12:25 12:25 11:55 PT with INR 10.60 INR 0.90 PTT (Actin FS) 26.0 Sodium 136 Potassium 4.5 Chloride 106 Carbon Dioxide 24 Anion Gap 7 L BUN 5.5 L Creatinine 0.4 L Est GFR (CKD-EPI)AfAm 165.44 Est GFR (CKD-EPI)NonAf 142.74 Random Glucose 96 Calcium 8.7 Magnesium 2.3 Total Bilirubin 0.4 AST 55 H ALT 22 Alkaline Phosphatase 89 Total Protein 7.0 Albumin 3.3 L Beta HCG, Quant 97620.3 Urine Color Yellow Urine Appearance Clear Urine pH 5.0 Ur Specific [place] 1.022 Urine Protein Negative Urine Glucose (UA) Negative Urine Ketones Negative Urine Blood Negative Urine Nitrite Negative Urine Bilirubin Negative Urine Urobilinogen 1.0 Ur Leukocyte Esterase Negative Urine HCG, Qual 08/21/19 11:55 PT with INR INR PTT (Actin FS) Sodium Potassium Chloride Carbon Dioxide Anion Gap BUN Creatinine Est GFR (CKD-EPI)AfAm Est GFR (CKD-EPI)NonAf Random Glucose Calcium Magnesium Total Bilirubin AST ALT Alkaline Phosphatase Total Protein Albumin Beta HCG, Quant Urine Color Urine Appearance Urine pH Ur Specific [place] Urine Protein Urine Glucose (UA) Urine Ketones Urine Blood Urine Nitrite Urine Bilirubin Urine Urobilinogen Ur Leukocyte Esterase Urine HCG, Qual Positive 08/21/19 12:25 RBC 4.07 MCV 93.8 MCHC 35.5 RDW 13.9 D MPV 9.1 Neutrophils % 76.9 Lymphocytes % 17.7 D Monocytes % 3.8 D Eosinophils % 0.8 Basophils % 0.8 D - Medications Given in the ED: ED Medications Discontinued Medications Generic Name Dose Route Start Last Admin Trade Name Joyce PRN Reason Stop Dose Admin Acetaminophen 1,000 mg 08/21/19 16:00 08/21/19 16:22 Tylenol - PO 08/21/19 16:01 1,000 mg ONCE ONE Administration ED Progress Note - Progress Note Progress Note: 08/21/19 17:19 Received signout from CYNDY Bloom. Briefly this a 28-year-old G3, P2 16 weeks gestation with 4 days of right lower quadrant pain. Patient endorses minor nausea and vomiting but attributes it to her usual morning sickness. Her nausea and vomiting has not gotten worse since the pain has started. She reports the pain is been constant over the past 4 days and is unable to identify any aggravating or alleviating factors. Ultrasound performed was unable to visualize the appendix. MRI has been performed read is pending. Disposition pending MRI results. Medical Decision Making - Medical Decision Making 08/21/19 17:23 MRI as read by Dr. Palma: Visualized lung bases inferior mediastinum are unremarkable. The liver is normal in size with no evidence or focal signal abnormality. The spleen is normal in size with no evidence of focal abnormal signal. The pancreas is homogenous in signal with no focal signal abnormality. The pancreatic duct is nondilated. The gallbladder is distended with no evidence of gallstones or sludge. There is no abnormal gallbladder wall thickening or surrounding edema. There is no biliary ductal dilatation. The adrenal glands are unremarkable. There is no focal renal signal abnormality. There is no hydronephrosis. There is no evidence of abdominal lymphadenopathy or abdominal ascites. Normal appendix is seen in the right lower abdominal quadrant. Single intrauterine fetus is seen with transverse lie. Posterior placenta is seen. The visualized osseous structures are grossly unremarkable. no focal findings on MRI noted. I feel it is safe to discharge the patient home to follow-up with her MOLECULAR SPECTROSCOPIST. vitamins have been discussed with the patient was verbalized understanding. I discussed the physical exam findings, ancillary test results and final diagnoses with the patient. I answered all of the patient's questions. The patient was satisfied with the care received and felt comfortable with the discharge plan and treatment plan. The patient will call their primary care physician within 24 hours to arrange follow-up and will return to the Emergency Department with any new, persistent or worsening symptoms. Discharge - Discharge Information Problems reviewed: Yes Clinical Impression/Diagnosis: Right lower quadrant abdominal pain during Condition: Stable Disposition: HOME - Admission No - Follow up/Referral Referrals: Loren Arias [Primary Care Provider] - - Patient Discharge Instructions Additional Instructions: Your MRI today was normal. It is very important that you follow-up with MOLECULAR SPECTROSCOPIST for continued evaluation of your . It is very important that you take vitamins to benefit the overall health of your growing baby. You do not need a prescription for these as they are available [id number]. The usually cost less than $20. You been given a referral for an MOLECULAR SPECTROSCOPIST. Call to schedule an appointment for reevaluation. Return to the emergency department for any vaginal bleeding, severe pain not relieved by medications or for any other concerns. Thank you very much for choosing us to provide your emergent healthcare needs. Tu resonancia magntica de hoy fue normal. Es muy importante que realice un seguimiento con OB / PRODUCT STRATEGY DIRECTOR para deonte evaluacin continua de salamanca embarazo. Es muy importante que tome vitaminas prenatales para beneficiar la wayne general de salamanca beb en crecimiento. No necesita deonte receta para estos, ya que estn disponibles sin receta. Por lo general, cuestan menos de $ 20. Le dieron deonte referencia para un obstetra / gineclogo. Llame para programar deonte maryanne para la reevaluacin. Regrese al departamento de emergencias por cualquier sangrado vaginal, dolor intenso no aliviado por medicamentos o por cualquier otra inquietud. Muchas jamie por elegirnos para satisfacer kami necesidades de atencin mdica emergentes. - Post Discharge Activity
[2019-08-21 17:33] VITALS: BP 118/74; PULSE 79
== END 2019-08-21 17:33 | disposition home or self-care (01) ==
LOC: JER 11:13
DX: O26.892 Other specified pregnancy related conditions, second trimester (principal); Z3A.16 16 weeks gestation of pregnancy; R10.31 Right lower quadrant pain
CPT/HCPCS: 36415; 74181-TC; 76815; 76856-TC; 80053; 81003; 83735; 84702; 84703; 85025; 85610; 85730; 99283-25

== ENCOUNTER 2020-01-27 12:45 | Inpatient (IN) | payer OTHER ==
[2020-01-27 18:54] LABS: BASO % 0.6 % (0-2.0); EOS % 0.9 % (0-4.5); HEMATOCRIT 33.1 % (32.4-45.2); HEMOGLOBIN 10.6 GM/dL (10.7-15.3); LYMPH % 22.9 % (8-40); MCH 27.2 pg (25.7-33.7); MCHC 32.2 g/dl (32.0-36.0); MEAN CELL VOLUME 84.6 fl (80-96); MONO % 4.1 % (3.8-10.2); NEUT % 71.5 % (42.8-82.8); PLATELET COUNT 301 K/MM3 (134-434); RBC 3.91 M/mm3 (3.60-5.2); RDW 16.2 % (11.6-15.6); WHITE BLOOD COUNT 8.9 K/mm3 (4.0-10.0)
[2020-01-27 18:58] VITALS: BMI 28.5
[2020-01-27 19:07] LABS: INR 0.87 (0.83-1.09); PROTHROMBIN TIME (PATIENT) 10.3 SEC (9.7-13.0)
[2020-01-27 19:09] LABS: ACTIVATED PTT 25.2 SECONDS (25.2-36.5)
[2020-01-27 19:25] LABS: CREATININE 0.6 mg/dL (0.55-1.3)
[2020-01-27] MEDS ORDERED: OXYTOCIN 30 UNITS in 0.9% NS 30 UNIT/500 ML INFUS.BAG IVPB ONE (19:41)
[2020-01-27] MEDS ORDERED: BUTORPHANOL TARTRATE 1 MG/ML VIAL IVPUSH PRN (20:27)
[2020-01-27] MEDS ORDERED: PROMETHAZINE HCL 25 MG/1 ML VIAL IVPUSH ONE (20:27)
[2020-01-27] MEDS ORDERED: OXYTOCIN 30 UNITS in 0.9% NS 30 UNIT/500 ML INFUS.BAG IVPB SCH (20:30)
--- NOTE | 2020-01-27 20:35 | HP ---
Past Medical History - Primary Care Physician PCP:: Clifton Villalba - Admission Chief Complaint: 39.6 weeks, labor History of Present Illness: 29 yo f g 4 p1 1 1 2, 39.6 weeks in labor cx 2 cm 50 vx -3 mi, fhr cat 1, irregular contraction, care at [facility] , LGA baby , GBS negative History Source: Patient Limitations to Obtaining History: Language Barrier - Past Medical History ...: 4 ...Para: 1 ...Term: 1 ...: 1 ...Spon : 1 ...Induced : 0 ...Living Children: 2 ...Multiple Gestation: 0 ...LMP: 04/21/19 ... Weeks Gestation by Dates: 39.6 ...EDC by Dates: 01/28/20 Heme/Onc: Yes: Anemia - Past Surgical History Hx Myomectomy: No Hx Transabdominal Cerclage: No - Smoking History Smoking history: Never smoked Have you smoked in the past 12 months: No - Alcohol/Substance Use Hx Alcohol Use: No History of Substance Use: reports: None - Social History Usual Living Arrangement: Yes: With Spouse History of Recent Travel: No Home Medications - Allergies Allergies/Adverse Reactions: Allergies Allergy/AdvReac Type Severity Reaction Status Date / Time No Known Allergies Allergy Verified 01/27/20 18:37 - Home Medications Home Medications: Ambulatory Orders Vitamins (Sjr) - 1 tab PO DAILY 01/27/20 Review of Systems - Review of Systems Constitutional: reports: No Symptoms Eyes: reports: No Symptoms HENT: reports: No Symptoms Neck: reports: No Symptoms Cardiovascular: reports: No Symptoms Respiratory: reports: No Symptoms Gastrointestinal: reports: No Symptoms Genitourinary: reports: No Symptoms Breasts: reports: No Symptoms Reported Musculoskeletal: reports: No Symptoms Integumentary: reports: No Symptoms Neurological: reports: No Symptoms Endocrine: reports: No Symptoms Hematology/Lymphatic: reports: No Symptoms Psychiatric: reports: No Symptoms Physical Exam - Maternity Vital Signs: Vital Signs Temperature 98.6 F 01/27/20 18:00 Pulse Rate 93 H 01/27/20 20:00 Respiratory Rate 18 01/27/20 20:00 Blood Pressure 127/76 01/27/20 20:00 O2 Sat by Pulse Oximetry (%) Constitutional: Yes: Well Nourished, No Distress, Calm Eyes: Yes: WNL, Conjunctiva Clear, EOM Intact HENT: Yes: WNL, Atraumatic, Normocephalic Neck: Yes: WNL, Supple, Trachea Midline Cardiovascular: Yes: WNL, Regular Rate and Rhythm Breast(s): Yes: WNL - Abdominal Exam/OB Fundal Height: 40 Number of Fetuses: Single Presentation: Vertex Contractions: Yes Regularity: Irregular Intensity: Mod/Strong Monitor Mode: External Heart Rate Location: [facility] Category: I Accelerations: Non-Uniform Decelerations: None - Vaginal Exam/OB Vaginal Bleeding: No Speculum Exam: No Dilatation (cm): 2 Effacement (%): 50 Amniotic Membrane Status: Intact Presentation: Vertex/Position Station: -3 - Physical Exam Musculoskeletal: Yes: WNL Extremities: Yes: WNL Edema: Yes Edema: LLE: Trace, RLE: Trace Deep Tendon Reflex Grade: Normal +2 ...Motor Strength: WNL Psychiatric: Yes: WNL - Labs Lab Results: CBC, BMP 01/27/20 17:00 01/27/20 17:00 Hemorrhage Risk Assessment - Risk Factors Medium Risk Factors: Yes: None High Risk Factors: Yes: None Risk Score: 1 Risk Level: Medium Risk Problem List - Problems (1) with 39 completed weeks gestation Code(s): Z3A.39 - 39 WEEKS GESTATION OF (2) Labor established Code(s): ZSC3483 - Assessment/Plan admit fhm irregular contraction, if contraction not regulated advised trial of pitocin, pain management
[2020-01-27] MEDS: DEXTROSE 5%-LACTATED RINGERS 1,000 ML IV SCH (23:00)
[2020-01-28] MEDS: DEXTROSE 5%-LACTATED RINGERS 1,000 ML IV SCH ×2 (06:05→14:20)
[2020-01-28] MEDS ORDERED: PROMETHAZINE HCL 25 MG/1 ML VIAL ONE (13:02)
[2020-01-28] MEDS ORDERED: BUTORPHANOL TARTRATE 2 MG/ML VIAL ONE (13:02)
--- NOTE | 2020-01-28 14:49 | PN ---
Progress Note (short form) - Note Progress Note: 12.55 pm cx 4 cm 70 vx -3 arom, light mec , fhr cat 1 , regular contraction Problem List - Problems (1) with 39 completed weeks gestation Code(s): Z3A.39 - 39 WEEKS GESTATION OF (2) Labor established Code(s): XTY4653 -
[2020-01-28] MEDS ORDERED: CITRIC ACID/SODIUM CITRATE 30 ML UNIT-DOSE CUP PO ONE (17:40)
--- NOTE | 2020-01-28 17:40 | PN ---
Progress Note (short form) - Note Progress Note: cx 4 cm, no changes no descent , hx of macrosomia , has regular contarction, c/s discussed , risks explained , agreed to have c/s Problem List - Problems (1) with 39 completed weeks gestation Code(s): Z3A.39 - 39 WEEKS GESTATION OF (2) Labor established Code(s): [id number] -
[2020-01-28] MEDS ORDERED: ELECTROLYTE-148 SOLN 1,000 ML IV SCH (17:45)
[2020-01-28] MEDS ORDERED: OXYTOCIN 20 UNITS in 0.9% NS 20 UNIT/1,000 ML INFUS.BAG IV ONE (20:18)
[2020-01-28] MEDS ORDERED: morphine SULFATE/Preservative Free 0.5 MG/ML (1cc Syringe) ONE (20:25)
[2020-01-28] MEDS ORDERED: WITCH HAZEL 50% (TUCKS) 40 PAD/JAR PAD TP PRN (21:35)
[2020-01-28] MEDS ORDERED: IBUPROFEN 800 MG/8 ML IJ IVPB PRN (21:35)
[2020-01-28] MEDS ORDERED: diphenhydrAMINE HCL 25 MG CAPSULE (FP) PO PRN (21:35)
[2020-01-28] MEDS ORDERED: oxyCODONE HCL 5 MG TABLET PO PRN ×2 (21:35)
[2020-01-28] MEDS ORDERED: METHYLERGONOVINE MALEATE 0.2 MG/1 ML AMP IM PRN (21:35)
[2020-01-28] MEDS ORDERED: BENZOCAINE 20% 57 GM BOTTLE TP PRN (21:35)
[2020-01-28] MEDS ORDERED: BENZOCAINE 28 GM HEMORRHOIDAL OINTMENT PR PRN (21:35)
[2020-01-28] MEDS ORDERED: METHYLERGONOVINE MALEATE 0.2 MG/1 ML AMP IM ONE (21:36)
--- NOTE | 2020-01-28 21:37 | OP ---
Operative Note - Note: Operative Date: 01/28/20 Pre-Operative Diagnosis: 39.6 weeks,labor, failure to dilate, tachycardia Operation: primary LST c/s Findings: live baby boy 03/24 Surgeon: Clifton Villalba Telegraph Service Clerk: Audi Saldivar Anesthesia: Spinal Specimens Removed: placenta Estimated Blood Loss (mls): 500 Drains & Tubes with Location: swift Blood Volume Replaced (mls): 0 Operative Report Dictated: Yes
[2020-01-28] MEDS ORDERED: OXYTOCIN 20 UNITS in 0.9% NS 20 UNIT/1,000 ML INFUS.BAG IV SCH (21:45)
[2020-01-28] MEDS ORDERED: DEXTROSE 5%-LACTATED RINGERS 1,000 ML IV SCH (21:45)
[2020-01-28] MEDS ORDERED: ONDANSETRON 4 MG/2 ML VIAL IVPUSH PRN (21:49)
[2020-01-28 21:55] LABS: CORD HCO3 22.9 mmHg (20-29); CORD PCO2 43.8 mmHg (30-78); CORD pH 7.336 (7.14-7.44)
[2020-01-28 21:56] LABS: CORD BASE EXCESS -2.6 mmol/L (0-2); CORD HCO3 25.3 mmHg (20-29); CORD PCO2 56.4 mmHg (30-78); CORD pH 7.27 (7.14-7.44)
[2020-01-29] MEDS: CEFAZOLIN 1 GM/D5W 1 GM/50 ML BAG IVPB SCH ×2 (02:09→10:27)
--- NOTE | 2020-01-29 06:55 | PN ---
Post Progress Note - Subjective Subjective: No issues overnight. Pain controlled. Swift in place. No N/V. Swift in place Post Day: 1 Type of Delivery: Primary C/S Vital Signs: Vital Signs Temperature 98.1 F 01/29/20 01:12 Pulse Rate 82 01/29/20 01:12 Respiratory Rate 20 01/29/20 06:00 Blood Pressure 110/70 01/29/20 01:12 O2 Sat by Pulse Oximetry (%) 95 01/29/20 01:12 Uterus: Yes: Fundus @ umbilicus Incision: Yes: Dressing dry and intact Abdomen/GI: Yes: Abdomen soft Lochia: Yes: Rubra Perineum: Yes: Intact - Labs Labs: CBC WBC 8.9 K/mm3 (4.0-10.0) 01/27/20 17:00 RBC 3.91 M/mm3 (3.60-5.2) 01/27/20 17:00 Hgb 10.6 GM/dL (10.7-15.3) L 01/27/20 17:00 Hct 33.1 % (32.4-45.2) 01/27/20 17:00 MCV 84.6 fl (80-96) 01/27/20 17:00 MCH 27.2 pg (25.7-33.7) D 01/27/20 17:00 MCHC 32.2 g/dl (32.0-36.0) 01/27/20 17:00 RDW 16.2 % (11.6-15.6) H 01/27/20 17:00 Plt Count 301 K/MM3 (134-434) D 01/27/20 17:00 MPV 11.0 fl (7.5-11.1) D 01/27/20 17:00 Absolute Neuts (auto) 6.3 K/mm3 (1.5-8.0) 01/27/20 17:00 Neutrophils % 71.5 % (42.8-82.8) 01/27/20 17:00 Lymphocytes % 22.9 % (8-40) D 01/27/20 17:00 Monocytes % 4.1 % (3.8-10.2) 01/27/20 17:00 Eosinophils % 0.9 % (0-4.5) 01/27/20 17:00 Basophils % 0.6 % (0-2.0) 01/27/20 17:00 Nucleated RBC % 0 % (0-0) 01/27/20 17:00 Assessment/Plan 29yo s/p PLTCS, POD#1 Routine PP care PO pain control F/U AM labs OOB, ambulate; d/c swift today Anticipate d/c to home by POD#3 Bethanie Moura MD
--- NOTE | 2020-01-29 08:05 | PN ---
Progress Note (short form) - Note Progress Note: Anesthesia Post op/pain Pt seen and examined S:Alert and awake comfortable O: Vital Signs Temperature 98.0 F 01/29/20 06:00 Pulse Rate 87 01/29/20 06:00 Respiratory Rate 18 01/29/20 07:00 Blood Pressure 95/60 01/29/20 06:00 O2 Sat by Pulse Oximetry (%) 95 01/29/20 01:12 CBC, BMP 01/27/20 17:00 01/27/20 17:00 A/P: Current Active Problems Labor established (Acute) with 39 completed weeks gestation (Acute) s/p c section Doing well post op Continue current care Lincoln Pleitez MD
[2020-01-29 08:30] LABS: BASO % 0.3 % (0-2.0); EOS % 0.4 % (0-4.5); HEMATOCRIT 30.5 % (32.4-45.2); HEMOGLOBIN 9.9 GM/dL (10.7-15.3); LYMPH % 18.9 % (8-40); MCH 27.2 pg (25.7-33.7); MCHC 32.3 g/dl (32.0-36.0); MEAN CELL VOLUME 84.2 fl (80-96); MEAN PLT VOLUME 9.7 fl (7.5-11.1); MONO % 5.2 % (3.8-10.2); NEUT % 75.2 % (42.8-82.8); PLATELET COUNT 266 K/MM3 (134-434); RBC 3.62 M/mm3 (3.60-5.2); RDW 16.2 % (11.6-15.6)
[2020-01-29] MEDS ORDERED: DIPHTH,PERTUSS(ACELL),TET 0.5 ML DISP.SYRIN IM ONE (10:15)
[2020-01-29] MEDS: SIMETHICONE 80 MG TAB.CHEW (FP) PO PRN ×2 (10:27→15:10)
[2020-01-29] MEDS: ENOXAPARIN NA (PORCINE) 40 MG/0.4 ML DISP.SYRIN SQ SCH (10:27)
--- NOTE | 2020-01-29 18:53 | OP ---
DATE OF OPERATION: 01/29/2020 PREOPERATIVE DIAGNOSIS: 39.6 weeks gestation labor failure of cervical dilation and tachycardia. POSTOPERATIVE DIAGNOSIS: 39.6 weeks gestation labor failure of cervical dilation and tachycardia. PROCEDURE: Primary low segment transverse section. SURGEON: Kayden Dior MD. SUPERVISOR ROSE GRADING: CYNDY Joel. ANESTHESIA: Spinal. ANESTHESIOLOGIST: Carlos Real MD. ESTIMATED BLOOD LOSS: 500 mL. FINDINGS: A live baby boy, Apgars 9 and 9, occiput posterior position. OPERATION: Patient was taken to operating room with adequate spinal anesthesia. Abdomen and perineum were prepped and draped. Pfannenstiel abdominal skin incision was made. Abdominal wall was cut layer by layer until the peritoneum was exposed and incised. Then 2 lap pads were placed in both gutters, and lower uterine segment was identified, and uterovesical fold of the peritoneum was established. The bladder was pushed down. A low transverse incision was made. The incision extended laterally with bandage scissors. Amniotic sac was entered. Head delivered from occiput posterior position. Nasopharynx was suctioned. A live baby boy was delivered Apgars 9 and 9. Placenta was delivered manually. Uterine cavity was cleaned of all remaining tissue. Uterine incision was closed in 2 layers, the 1st layer with 0 Biosyn continuous suture, the 2nd layer with 0 Biosyn imbricating the 1st layer. Bladder flap was closed with 0 Biosyn continuous suture. Both tubes and ovaries were checked and were normal. No active bleeding was seen. All the lap, sponge, and instrument counts were correct. Peritoneum was closed with 0 Biosyn continuous suture. Muscles were brought together interrupted suture with 0 Biosyn. Fascia was closed with 0 Biosyn continuous sutures. Subcutaneous fat with interrupted sutures 0 Biosyn, and the skin was closed with 3-0 Vicryl subcuticular continuous suture. The patient tolerated the procedure well and left the OR in good condition. KAYDEN DIOR M.D. /[id number]
[2020-01-29] MEDS ORDERED: BISACODYL 10 MG SUPP.RECT PR PRN (21:35)
[2020-01-30] MEDS: ACETAMINOPHEN 325 MG TABLET (FP) PO PRN ×3 (05:21→23:57)
[2020-01-30] MEDS: IBUPROFEN 600 MG TABLET (FP) PO PRN ×4 (05:21→23:58)
[2020-01-30] MEDS: SIMETHICONE 80 MG TAB.CHEW (FP) PO PRN ×4 (05:22→23:58)
--- NOTE | 2020-01-30 07:34 | PN ---
Progress Note (short form) - Note Progress Note: pod 2 s/p c/s , doing well, ambulating , pasing gas Current Medications Generic Name Dose Route Start Last Admin Trade Name Freq PRN Reason Stop Dose Admin Acetaminophen 650 mg 01/28/20 21:49 01/30/20 05:21 Tylenol - PO 650 mg Q4H PRN Administration PAIN LEVEL 1-3 Benzocaine 1 spray 01/28/20 21:35 Americaine 20% Sterling - TP PRN PRN Pain - Topical Benzocaine 1 applic 01/28/20 21:35 Americaine Ointment - UT PRN PRN Pain - Topical Bisacodyl 10 mg 01/29/20 21:35 Dulcolax Suppository - UT PRN PRN CONSTIPATION Diphenhydramine HCl 25 mg 01/28/20 21:35 Benadryl - PO Q8H PRN FOR ITCHING Enoxaparin Sodium 40 mg 01/29/20 10:00 01/29/20 10:27 Lovenox - SQ 40 mg DAILY NIKOLE Administration Parenteral Electrolytes 1,000 mls @ 125 mls/hr 01/28/20 17:45 01/28/20 19:00 Plasma-Lyte 148 - IV 125 mls/hr ASDIR NIKOLE Administration Dextrose/Lactated Ringer's 1,000 mls @ 125 mls/hr 01/28/20 21:45 01/29/20 00:58 D5-Lr - IV Not Given ASDIR NIKOLE Ibuprofen 600 mg 01/28/20 21:35 01/30/20 05:21 Motrin - PO 600 mg Q4H PRN Administration PAIN LEVEL 1 - 3 Ibuprofen 800 mg 01/28/20 21:35 01/29/20 15:10 Caldolor Injection - IVPB 800 mg Q6H PRN Administration PAIN > 5 if PO not effective. Methylergonovine Maleate 0.2 mg 01/28/20 21:35 Methergine Injection - IM Q4H PRN EXCESSIVE BLEEDING Ondansetron HCl 4 mg 01/28/20 21:49 Zofran Injection IVPUSH Q4H PRN NAUSEA Oxycodone HCl 5 mg 01/28/20 21:35 Roxicodone - PO Q4H PRN PAIN LEVEL 4 - 6 Oxycodone HCl 10 mg 01/28/20 21:35 Roxicodone - PO Q4H PRN PAIN LEVEL 7 - 10 Senna/Docusate Sodium 2 tablet 01/30/20 22:00 Pericolace - PO HS PRN CONSTIPATION Simethicone 80 mg 01/28/20 21:35 01/30/20 05:22 Mylicon - PO 80 mg Q4H PRN Administration GAS Witch Ivet/Glycerin 1 pad 01/28/20 21:35 Tucks Pads - TP PRN PRN Pain - Topical Last Vital Signs Temp Pulse Resp BP Pulse Ox 98.0 F 94 H 20 96/57 L 94 L 01/29/20 20:34 01/29/20 20:34 01/29/20 20:34 01/29/20 20:34 01/29/20 14:00 CBC, BMP 01/29/20 08:02 01/27/20 17:00 abdomen soft, no distension, no cva , BS present incison dry, clean no calf tenderness lochia mild plan ambulate , pain ,management cbc in am Problem List - Problems (1) with 39 completed weeks gestation Code(s): Z3A.39 - 39 WEEKS GESTATION OF (2) Labor established Code(s): MNI8528 -
[2020-01-30] MEDS: ENOXAPARIN NA (PORCINE) 40 MG/0.4 ML DISP.SYRIN SQ SCH (09:35)
[2020-01-30] MEDS ORDERED: SENNOSIDES/DOCUSATE COMBO (SENNA PLUS) TABLET (UD) PO PRN (22:00)
[2020-01-31 08:23] LABS: BASO % 0.5 % (0-2.0); EOS % 1.8 % (0-4.5); HEMATOCRIT 31.8 % (32.4-45.2); HEMOGLOBIN 10.1 GM/dL (10.7-15.3); LYMPH % 17.2 % (8-40); MCH 26.7 pg (25.7-33.7); MCHC 31.7 g/dl (32.0-36.0); MEAN CELL VOLUME 84.2 fl (80-96); MEAN PLT VOLUME 8.9 fl (7.5-11.1); MONO % 4.4 % (3.8-10.2); NEUT % 76.1 % (42.8-82.8); PLATELET COUNT 331 K/MM3 (134-434); RBC 3.78 M/mm3 (3.60-5.2); RDW 16.4 % (11.6-15.6); WHITE BLOOD COUNT 8.8 K/mm3 (4.0-10.0)
[2020-01-31 08:53] VITALS: BP 113/74; PULSE 76; TEMP 97.6
[2020-01-31] MEDS: SIMETHICONE 80 MG TAB.CHEW (FP) PO PRN (09:20)
[2020-01-31] MEDS: IBUPROFEN 600 MG TABLET (FP) PO PRN (09:20)
[2020-01-31] MEDS: ENOXAPARIN NA (PORCINE) 40 MG/0.4 ML DISP.SYRIN SQ SCH (09:20)
[2020-01-31] MEDS: ACETAMINOPHEN 325 MG TABLET (FP) PO PRN (09:20)
--- NOTE | 2020-01-31 09:44 | DS ---
Physical Exam-BLUEPRINT BLOCKER Vital Signs: Vital Signs Temperature 97.6 F 01/31/20 08:49 Pulse Rate 76 01/31/20 08:49 Respiratory Rate 18 01/31/20 08:49 Blood Pressure 113/74 01/31/20 08:49 O2 Sat by Pulse Oximetry (%) 94 L 01/29/20 14:00 Constitutional: Yes: Well Nourished, No Distress, Calm Eyes: Yes: WNL, Conjunctiva Clear, EOM Intact HENT: Yes: WNL, Atraumatic, Normocephalic Neck: Yes: WNL, Supple, Trachea Midline Cardiovascular: Yes: WNL, Regular Rate and Rhythm Respiratory: Yes: WNL, Regular, CTA Bilaterally Gastrointestinal: Yes: WNL ...Rectal Exam: Yes: WNL Renal/: Yes: WNL ....Post : Yes: Uterus firm, Uterus non-tender, Slight lochia rubra Breast(s): Yes: WNL Musculoskeletal: Yes: WNL Extremities: Yes: WNL Edema: LLE: Trace, RLE: Trace Integumentary: Yes: WNL Wound/Incision: Yes: Clean/Dry, Well Approximated, Sutures Intact Neurological: Yes: WNL, Alert, Oriented ...Motor Strength: WNL Psychiatric: Yes: WNL, Alert, Oriented Labs: CBC, BMP 01/31/20 07:50 01/27/20 17:00 Delivery - Delivery Section: Primary, Low Flap Transverse Type of Anesthesia: Spinal Episiotomy/Laceration: None EBL (cc): 500 Delivery, Single - Stages of Labor Date 1st Stage Initiatied: 01/27/20 Time 1st Stage Initiated: 19:00 Date of Delivery: 01/28/20 Time of Delivery: 20:55 Time Placenta Delivered: 20:56 Placenta: Yes: Expressed - Condition of Brake Shoe Rebuilder/Elastic Tape Inserter Present: Yes Name: Natalya Ruiz Gender: Male Weight: 8 lb Position: OP Total Hours ROM (Hrs/Mins): 8HRS 1MIN - 1 Minute Total Score: 9 5 Minutes Total Score: 9 - Feeding Plan Initial Plan: Exclusive throughout hospitalization Discharge Summary Problems reviewed: Yes Reason For Visit: LABOR Current Active Problems Labor established (Acute) with 39 completed weeks gestation (Acute) Procedures: Principal: primary LST c/s Hospital Course: no complication Plan of Treatment: follow up [facility] care 1 week Condition: Good - Instructions Diet, Activity, Other Instructions: Regular Diet Follow up in one week for an incision check, if fever, pain, heavy vaginal bleeding call md Referrals: Clifton Villalba MD [Staff Physician] - Disposition: HOME - Home Medications Comprehensive Discharge Medication List: Ambulatory Orders Vitamins (Sjr) - 1 tab PO DAILY 01/27/20 Ibuprofen [Motrin -] 600 mg PO QID #28 tablet 01/30/20
--- NOTE | 2020-02-04 09:20 | PATH ---
Surgical Pathology Report Patient Name: NATHALIE CASTRO Med. Rec. #: [id number] /Age/Gender: 1990 (Age: 29) / F Account: [id number] Location: [facility] OBS/AD OPERATIONS SPECIALIST Taken: 01/28/2020 Received: 01/29/2020 Reported: 02/04/2020 Physicians: Clifton Villalba M.D. Specimen(s) Received PLACENTA Clinical History , 40 weeks, macrosomia, rest of labor/dilatation Final Diagnosis PLACENTA, SECTION: 489 G THIRD TRIMESTER PLACENTA WITH TRIVASCULAR UMBILICAL CORD AND PLACENTAL MEMBRANES WITH MILD PATCHY CHRONIC DECIDUITIS. SEE COMMENT. Comment: The presence of plasma cells raise the possibility of chronic endometritis. Suggest clinical correlation. Electronically Signed Darlene Amado M.D. Gross Description The specimen is received fresh labeled placenta and is a 489 gram, 15.5 x 14.0 x 2.8 cm. placenta with attached membranes and umbilical cord. The attached membranes are browne, translucent with focal opacities and insert marginally. The umbilical cord measures 5 cm. in length and averages 1.2 cm. in diameter. The cord inserts eccentrically, 4 cm. to the nearest margin. No true knots or strictures are identified. Cut surface of the umbilical cord reveals 3 vessels. The surface is glass-blue with minimal fibrin deposition and appropriate caliber vessels. The maternal surface is red-brown with focal defects. Sectioning reveals red-brown, spongy parenchyma. No lesions are identified. Windows Laptop Technician sections are submitted in three cassettes as follows: 1- membrane rolls and umbilical cord; 2-3- full thickness sections of placenta. /02/02/2020 [facility]02/02/2020
== END 2020-01-31 14:10 | disposition home or self-care (01) | DRG 540 ==
LOC: JDEL 12:45 → JLDR 16:35 → J3W 01-29
PROVIDERS: ADMIT Obstetrics & Gynecology; ATTEND Obstetrics & Gynecology
PROC: 10907ZC Drainage of Amniotic Fluid, Therapeutic from Products of Conception, Via Natural or Artificial Opening (ICD-10-PCS; 2020-01-28)
PROC: 10D00Z1 Extraction of Products of Conception, Low, Open Approach (ICD-10-PCS; principal; 2020-01-29)
DX: O62.0 Primary inadequate contractions (principal); O76 Abnormality in fetal heart rate and rhythm complicating labor and delivery; O77.0 Labor and delivery complicated by meconium in amniotic fluid; O36.63X0 Maternal care for excessive fetal growth, third trimester, not applicable or unspecified; O99.02 Anemia complicating childbirth; D64.9 Anemia, unspecified; Z3A.39 39 weeks gestation of pregnancy; Z37.0 Single live birth
CPT/HCPCS: 36415; 36600; 80048; 82803; 85025; 85610; 85730; 86780; 86850; 86900; 86901; 88307-TC; 90715; U0003

== ENCOUNTER 2022-11-21 11:02 | Emergency (ER) | payer OTHER ==
[2022-11-21 11:08] VITALS: BP 117/68; PULSE 84; RESP 20; TEMP 98.7; BMI 30.4
[2022-11-21] MEDS ORDERED: SODIUM CHLORIDE 1,000 ML IV STA (11:32)
[2022-11-21] MEDS ORDERED: FAMOTIDINE 20 MG/50 ML IVPB 20 MG/50 ML MG IVPB ONE (11:32)
[2022-11-21] MEDS ORDERED: ONDANSETRON 4 MG/2 ML VIAL ONE (11:33)
[2022-11-21] MEDS ORDERED: MAG HYDROX/AL HYDROX/SIMETH 30 ML UNIT-DOSE CUP PO ONE (11:33)
[2022-11-21] MEDS ORDERED: ONDANSETRON 4 MG/2 ML VIAL IVPUSH ONE (11:33)
[2022-11-21] MEDS ORDERED: FAMOTIDINE 10 MG/ML VIAL IVPB ONE (11:34)
[2022-11-21] MEDS ORDERED: MAG HYDROX/AL HYDROX/SIMETH 30 ML UNIT-DOSE CUP ONE (11:34)
[2022-11-21 12:25] LABS: BASO % 0.6 % (0-2.0); EOS % 2.6 % (0-4.5); HEMATOCRIT 37.1 % (32.4-45.2); HEMOGLOBIN 13.4 GM/dL (10.7-15.3); LYMPH % 32.8 % (8-40); MCH 32.5 pg (25.7-33.7); MEAN CELL VOLUME 90.3 fl (80-96); MEAN PLT VOLUME 9.6 fl (7.5-11.1); PH,URINE 5.5 (5.0-8.0); PLATELET COUNT 189 10^3/uL (134-434); RBC 4.12 M/mm3 (3.60-5.2); RDW 12.7 % (11.6-15.6); URINE APPEARANCE CLEAR; URINE BILIRUBIN NEGATIVE (NEGATIVE); URINE COLOR YELLOW; URINE GLUCOSE (UA) NEGATIVE (NEGATIVE); URINE KETONE NEGATIVE (NEGATIVE); URINE LEUK ESTERASE NEGATIVE (NEGATIVE); URINE NITRITE NEGATIVE (NEGATIVE); URINE PROTEIN NEGATIVE (NEGATIVE); URINE UROBILINOGEN 0.2 mg/dL (0.2-1.0); WHITE BLOOD COUNT 5.6 K/mm3 (4.0-10.0)
[2022-11-21 12:28] LABS: HCG,QUALITATIVE URINE Negative
[2022-11-21 12:45] LABS: ALBUMIN 3.7 g/dl (3.4-5.0); BLOOD UREA NITROGEN 7.3 mg/dL (7-18)
[2022-11-21 12:48] LABS: CREATININE 0.5 mg/dL (0.55-1.3)
[2022-11-21 12:50] LABS: BILIRUBIN,TOTAL 0.6 mg/dL (0.2-1); TOT PROT 7.2 g/dl (6.4-8.2)
[2022-11-21] MEDS ORDERED: ACETAMINOPHEN 1000 MG/100 ML BAG IVPB ONE (15:28)
== END 2022-11-21 17:30 | disposition home or self-care (01) ==
LOC: JER 11:02
PROC: 3E033GC Introduction of Other Therapeutic Substance into Peripheral Vein, Percutaneous Approach (ICD-10-PCS; principal; 2022-11-21)
PROC: 3E033GC Introduction of Other Therapeutic Substance into Peripheral Vein, Percutaneous Approach (ICD-10-PCS; 2022-11-21)
DX: R10.9 Unspecified abdominal pain (principal); R14.0 Abdominal distension (gaseous); R19.7 Diarrhea, unspecified; N83.201 Unspecified ovarian cyst, right side
CPT/HCPCS: 36415; 74177-TC; 76705-TC; 80053; 81003; 83690; 84703; 85025; 87086; 96365; 96375; 99285-25; Q9967